=== PATIENT | female | born 1960 | race Caucasian/White ===

== ENCOUNTER 2018-06-17 11:22 | Day surgery (SDC) | payer OTHER ==
[~2018-06-17] VITALS: Ht 172.7 cm; Wt 120.7 kg
[~2018-06-17 11:22] MED LIST: ARIP10 PO; Amoxicillin500 MG PO; BENZ.5; BENZ2 PO; CALCIUM CITRAT1 EAC4 PO; CHLO100; CYCL10 PO; ESOM20; Fish Oil 10001000 MG GT; GLUC500 PO; HALO5; HALO5 PO; HYDACE5 PO; IBUP800 PO; META400 PO; META800 PO; Micardis Hct 81 EAC1 PO; NAPR500 PO; OMEPRAZOLE MAGN20 MG PO; OXYB5ER; Oxybutynin Chlo10 MG PO; PREVIDENT DT; PROACE100 PO; Percocet 5-3251 EACH PO; SERT100 PO; SERT50; TELM40; TELM80 PO; TELMISARTAN-HC1 EAC1 PO; TRAZ100 PO; TROSPIUM CHLORI20 MG PO; XARELTO10 MG PO; [UNRECOGNIZED DRUG - CODE] SL
--- NOTE | 2018-06-17 12:09 | NUR ---
PT ADMITTED TO [facility]. AGREES WITH PLANNED SURGERY. MEDS, ALLERGIES AND HX REVIEWED. LUNG SOUNDS CLEAR.
--- NOTE | 2018-06-17 12:38 | NUR ---
1220-ASSUMED CARE OF PATIENT FOR BROOKE MARQUEZ, REPORT RECEIVED. 1234-NOZIN SWABS COMPLETED. WILL BRING COMMODE TO BEDSIDE FOR VOID DUE TO MOBILITY ISSUES.
--- NOTE | 2018-06-17 12:52 | NUR ---
CLARIFIED ORDER WITH DR SAMAYOA AND WE WILL GO TO OR WITH 3 GM IV ANCEF INSTEAD OF 2 GM FOR 120.5 KG WEIGHT.
--- NOTE | 2018-06-17 12:53 | NUR ---
REPORT TO BROOKE MARQUEZ WHO IS RESUMING CARE OF PATIENT, REPORT GIVEN.
--- NOTE | 2018-06-17 18:27 | NUR ---
SHIFT SUMMARY PATIENT MOVING LEGS WELL, DENIES PAIN AT THIS TIME. TAKING PO WELL. VSS. R HIP DRESSING D&I. CIRC CHECKS WNL. NO C/O AT THIS TIME.
[2018-06-18 04:37] LABS: BASOPHILS ABSOLUTE AUTO 0.03 K/mm3 (0.00-0.23); BASOPHILS PERCENT AUTO 0 % (0-2); EOSINOPHILS ABSOLUTE AUTO 0.33 K/mm3 (0.00-0.68); EOSINOPHILS PERCENT AUTO 3 % (0-6); Hematocrit 34.4 % (33.0-51.0); Hemoglobin 11.1 g/dL (11.5-16.0); IMMATURE GRAN ABSOLUTE AUTO 0.03 K/mm3 (0.00-0.10); IMMATURE GRAN PERCENT AUTO 0 % (0-1); LYMPHOCYTES ABSOLUTE AUTO 1.99 K/mm3 (0.84-5.20); LYMPHOCYTES PERCENT AUTO 21 % (21-46); MONOCYTES ABSOLUTE AUTO 0.91 K/mm3 (0.16-1.47); MONOCYTES PERCENT AUTO 10 % (4-13); Mean Corpuscular HGB 29.1 pg (26.0-34.0); Mean Corpuscular HGB Conc 32.3 g/dL (31.5-36.5); Mean Corpuscular Volume 90 fL (80-100); Mean Platelet Volume 9.9 fL (9.1-12.4); NEUTROPHILS ABSOLUTE AUTO 6.28 K/mm3 (1.96-9.15); NEUTROPHILS PERCENT AUTO 66 % (41-73); Platelet Count 252 K/mm3 (150-400); RDW Coefficient Variation 13.5 % (11.7-14.2); RDW Standard Deviation 44.6 fL (35.1-46.3); Red Blood Cell Count 3.82 M/mm3 (3.80-5.20); White Blood Cell Count 9.57 K/mm3 (4.00-11.30)
[2018-06-18 04:51] LABS: Anion Gap 9 mmol/L (6-16); Blood Urea Nitrogen 11 mg/dL (8-24); Bun/Creatinine Ratio 14.2 (12.0-20.0); CO2, Blood 27 mmol/L (21-32); Calcium, Blood 8.7 mg/dL (8.5-10.1); Chloride, Blood 99 mmol/L (98-108); Creatinine, Blood 0.77 mg/dL (0.40-1.00); Glomerular Filtration Rate >60 (60-); Glucose, Blood 119 mg/dL (70-99); Potassium, Blood 3.3 mmol/L (3.5-5.5); Sodium, Blood 135 mmol/L (136-145)
--- NOTE | 2018-06-18 07:22 | NUR ---
SUMMARY: POD [address] SAMAYOA. VSS, AFEBRILE, ROOM AIR, WITH GOOD TCDB EFFORT. PAIN WELL CONTROLLED WITH 5MG ROXICODONE FOR PRN PAIN. UP WITH 1 ASSIST FOR BRP; VOIDING CLEAR, YELLOW AND HAD BM THIS MORNING. ANTICIPATE PT/OT AND DC HOME LATER THIS DAY.
[2018-06-18] MEDS ORDERED: Percocet 5-3251 EACH PO (11:41)
[2018-06-18] MEDS ORDERED: XARELTO10 MG PO (11:42)
--- NOTE | 2018-06-18 12:05 | NUR ---
pt provided with discharge instructions and printed materials,peripheral iv removed wnl. pt escorted to awaiting vehicle via wheelchair with belongings taken to vehicle by pt's .
--- NOTE | 2018-06-18 13:54 | NUR ---
06/18/18 1354 Elisabeth Higgins VERIFICATIONS: EDIT CHART.
== END 2018-06-18 12:05 | disposition home or self-care (01) ==
LOC: ORSCMMR 11:22 → ORD 13:30 → ORSCMMR 13:30 → SURS 16:05 → ORSCMMR 06-18 12:05 → ORD 06-24 07:30
PROVIDERS: Orthopaedic Surgery
PROC: 0SRC0JZ Replacement of Right Knee Joint with Synthetic Substitute, Open Approach (ICD-10-PCS; principal; 2018-06-17 13:30)
DX: M17.11 Unilateral primary osteoarthritis, right knee (principal); I10 Essential (primary) hypertension; F31.9 Bipolar disorder, unspecified; J44.9 Chronic obstructive pulmonary disease, unspecified; G47.33 Obstructive sleep apnea (adult) (pediatric); R01.1 Cardiac murmur, unspecified; Z79.899 Other long term (current) drug therapy; Z96.652 Presence of left artificial knee joint; Z88.8 Allergy status to other drugs, medicaments and biological substances
CPT/HCPCS: 36415; 73560-RT; 80048; 82947; 85025; 86850; 86900; 86901; 88300; 97110; 97116; 97162; C1776; J0171; J0690; J0735; J1885; J2250; J2795; J3010; J7120

== ENCOUNTER → 2022-03-06 | Outpatient (CLI) | payer MEDICARE ==
[2022-03-11 14:09] LABS: HPV 16 Negative (Negative); HPV 18 Negative (Negative); HPV OTHER HR TYPES Negative (Negative)
== END ==
LOC: LAB 08:00 → LAB SHORT 08:00
PROVIDERS: Family Medicine
DX: Z01.419 Encounter for gynecological examination (general) (routine) without abnormal findings (principal)
CPT/HCPCS: 87624; G0123

== ENCOUNTER 2023-03-04 13:40 | Day surgery (SDC) | payer MEDICARE ==
[~2023-03-04] VITALS: Ht 170.2 cm; Wt 123.6 kg
[2023-03-04] MEDS ORDERED: HYDROCHLOROTHIA25 MG (14:02)
[2023-03-04] MEDS ORDERED: AMLO5 (14:02)
[2023-03-04] MEDS ORDERED: LOSA50 (14:02)
--- NOTE | 2023-03-04 16:56 | NUR ---
03/04/23 923 ALINA DONALDSON RECEIVED REPORT FROM RN'S AMINAH. THIS RN IS TAKING OVER CIRCULATING CASE I AM SCHEDULED LATE TODAY.
[2023-03-04 17:42] VITALS: BP 155/79
== END 2023-03-04 17:30 | disposition home or self-care (01) ==
LOC: ORSCSDS 13:40
PROVIDERS: Internal Medicine Gastroenterology
PROC: 0DB98ZX Excision of Duodenum, Via Natural or Artificial Opening Endoscopic, Diagnostic (ICD-10-PCS; principal; 2023-03-04 15:00)
PROC: 0DBE8ZX Excision of Large Intestine, Via Natural or Artificial Opening Endoscopic, Diagnostic (ICD-10-PCS; principal; 2023-03-04 15:00)
PROC: 0DBK8ZX Excision of Ascending Colon, Via Natural or Artificial Opening Endoscopic, Diagnostic (ICD-10-PCS; principal; 2023-03-04 15:00)
PROC: 0DBL8ZX Excision of Transverse Colon, Via Natural or Artificial Opening Endoscopic, Diagnostic (ICD-10-PCS; principal; 2023-03-04 15:00)
PROC: 0DB78ZX Excision of Stomach, Pylorus, Via Natural or Artificial Opening Endoscopic, Diagnostic (ICD-10-PCS; principal; 2023-03-04 15:00)
DX: R19.7 Diarrhea, unspecified (principal); K21.9 Gastro-esophageal reflux disease without esophagitis; Z86.010 Personal history of colon polyps; K31.7 Polyp of stomach and duodenum; D12.3 Benign neoplasm of transverse colon; D12.2 Benign neoplasm of ascending colon; K92.1 Melena; K29.70 Gastritis, unspecified, without bleeding; K57.30 Diverticulosis of large intestine without perforation or abscess without bleeding; I10 Essential (primary) hypertension; G47.33 Obstructive sleep apnea (adult) (pediatric); F31.9 Bipolar disorder, unspecified; F41.9 Anxiety disorder, unspecified; E66.01 Morbid (severe) obesity due to excess calories; Z68.41 Body mass index [BMI] 40.0-44.9, adult; Z79.899 Other long term (current) drug therapy
CPT/HCPCS: 88305; 88342; J0461; J2001; J2405; J2704; J7120; Q9968

== ENCOUNTER 2023-08-14 10:42 | Day surgery (SDC) | payer OTHER ==
[~2023-08-14] VITALS: Ht 170.2 cm; Wt 125.8 kg
[~2023-08-14 10:42] MED LIST changes: +AMLO5; +FAMO20 PO; +HYDROCHLOROTHIA25 MG; +LOSA50; +Lactated Ringer's 1,000 ML IV ONE
[2023-08-14] MEDS ORDERED: Lactated Ringer's 1,000 ML IV ONE (12:01)
[2023-08-14] MEDS ORDERED: propofoL 50 ML IV ONE (12:08)
[2023-08-14 13:22] VITALS: BP 161/75
== END 2023-08-14 13:22 | disposition home or self-care (01) ==
LOC: ORSCSDS 10:42
PROVIDERS: Internal Medicine Gastroenterology
PROC: 0DBL8ZX Excision of Transverse Colon, Via Natural or Artificial Opening Endoscopic, Diagnostic (ICD-10-PCS; principal; 2023-08-14 12:30)
PROC: 0DBN8ZX Excision of Sigmoid Colon, Via Natural or Artificial Opening Endoscopic, Diagnostic (ICD-10-PCS; principal; 2023-08-14 12:30)
DX: Z86.010 Personal history of colon polyps (principal); K63.5 Polyp of colon; K57.30 Diverticulosis of large intestine without perforation or abscess without bleeding; I10 Essential (primary) hypertension; J44.9 Chronic obstructive pulmonary disease, unspecified; K21.9 Gastro-esophageal reflux disease without esophagitis; G47.33 Obstructive sleep apnea (adult) (pediatric); F32.A Depression, unspecified; F25.9 Schizoaffective disorder, unspecified; Z79.899 Other long term (current) drug therapy
CPT/HCPCS: 88305; J2704; J7120

== ENCOUNTER 2023-12-14 16:01 | Emergency (ER) | payer OTHER ==
[~2023-12-14] VITALS: Ht 170.2 cm; Wt 124.7 kg
[~2023-12-14 16:01] MED LIST changes: -Lactated Ringer's 1,000 ML IV ONE
[2023-12-14 17:40] LABS: BASOPHILS ABSOLUTE AUTO 0.02 K/mm3 (0.00-0.23); BASOPHILS PERCENT AUTO 0 % (0-2); EOSINOPHILS ABSOLUTE AUTO 0.25 K/mm3 (0.00-0.68); EOSINOPHILS PERCENT AUTO 3 % (0-6); Hematocrit 41.2 % (33.0-51.0); Hemoglobin 14.2 g/dL (11.5-16.0); IMMATURE GRAN ABSOLUTE AUTO 0.01 K/mm3 (0.00-0.10); IMMATURE GRAN PERCENT AUTO 0 % (0-1); LYMPHOCYTES ABSOLUTE AUTO 2.21 K/mm3 (0.84-5.20); LYMPHOCYTES PERCENT AUTO 29 % (21-46); MONOCYTES PERCENT AUTO 8 % (4-13); Mean Corpuscular HGB 30.5 pg (26.0-34.0); Mean Corpuscular HGB Conc 34.5 g/dL (31.5-36.5); Mean Corpuscular Volume 88 fL (80-100); Mean Platelet Volume 9.7 fL (9.1-12.4); NEUTROPHILS ABSOLUTE AUTO 4.42 K/mm3 (1.96-9.15); NEUTROPHILS PERCENT AUTO 59 % (41-73); Platelet Count 272 K/mm3 (150-400); RDW Coefficient Variation 13.2 % (11.7-14.2); Red Blood Cell Count 4.66 M/mm3 (3.80-5.20); White Blood Cell Count 7.51 K/mm3 (4.00-11.30)
[2023-12-14] MEDS ORDERED: Ketorolac Tromethamine 15mg Vial IV ONE (18:05)
[2023-12-14] MEDS ORDERED: Acetaminophen 500 MG Tab PO ONE (18:05)
[2023-12-14 18:14] LABS: Albumin, Blood 3.8 g/dL (3.4-5.0); Albumin/Globulin Ratio 0.8 (0.8-1.8); Bilirubin, Total 0.3 mg/dL (0.1-1.0); Bun/Creatinine Ratio 21.8 (12.0-20.0); Calcium, Blood 9.3 mg/dL (8.5-10.1); Creatinine, Blood 0.6 mg/dL (0.40-1.00); Globulin, Blood 4.5 g/dL (2.2-4.0); Potassium, Blood 3.5 mmol/L (3.5-5.5); Total Protein, Blood 8.3 g/dL (6.4-8.2)
[2023-12-14] MEDS ORDERED: IBUP600 PO (19:36)
[2023-12-14] MEDS ORDERED: LIDO700A20 TOP (19:36)
[2023-12-14] MEDS ORDERED: ACET500 PO (19:36)
[2023-12-14 20:00] VITALS: BP 173/90
== END 2023-12-14 20:06 | disposition home or self-care (01) ==
LOC: ER 16:01
PROVIDERS: Physician Assistant
DX: M19.012 Primary osteoarthritis, left shoulder (principal); F32.A Depression, unspecified; Z79.899 Other long term (current) drug therapy; Z88.8 Allergy status to other drugs, medicaments and biological substances
CPT/HCPCS: 71046; 73030; 80053; 83690; 84484; 85025; 93005; 93010; 96374; 99284-25; A9270; J1885

== ENCOUNTER 2024-02-21 07:27 | Emergency (ER) | payer OTHER ==
[~2024-02-21] VITALS: Ht 170.2 cm; Wt 127.0 kg
[~2024-02-21 07:27] MED LIST changes: +ACET500 PO; +IBUP600 PO; +LIDO700A20 TOP
[2024-02-21 08:24] VITALS: BP 170/83
[2024-02-21] MEDS ORDERED: CELEBREX200 MG PO (09:15)
[2024-02-21] MEDS ORDERED: OMEP20ER PO (09:16)
[2024-02-21] MEDS ORDERED: METFORMIN HCL500 M2 PO (09:16)
[2024-02-21] MEDS ORDERED: HALOPERIDOL PO (09:16)
[2024-02-21] MEDS ORDERED: AMLODIPINE BESY10 MG PO (09:18)
[2024-02-21] MEDS ORDERED: CLOBETASOL PRO118 ML TP (09:35)
[2024-02-22] MEDS ORDERED: CLOBETASOL PRO118 ML TP (08:20)
== END 2024-02-21 09:47 | disposition home or self-care (01) ==
LOC: ER 07:27
DX: L40.9 Psoriasis, unspecified (principal); Z88.8 Allergy status to other drugs, medicaments and biological substances; Z79.899 Other long term (current) drug therapy
CPT/HCPCS: 99282

== ENCOUNTER 2025-04-23 10:03 | Emergency (ER) | payer OTHER ==
[~2025-04-23] VITALS: Ht 170.2 cm; Wt 128.8 kg
[~2025-04-23 10:03] MED LIST changes: +AMLODIPINE BESY10 MG PO; +CELEBREX200 MG PO; +CLOBETASOL PRO118 ML TP; +HALOPERIDOL PO; +METFORMIN HCL500 M2 PO; +OMEP20ER PO
[2025-04-23 10:26] VITALS: BP 144/75
[2025-04-23 13:36] LABS: BASOPHILS ABSOLUTE AUTO 0.04 K/mm3 (0.00-0.23); BASOPHILS PERCENT AUTO 0 % (0-2); EOSINOPHILS ABSOLUTE AUTO 0.34 K/mm3 (0.00-0.68); EOSINOPHILS PERCENT AUTO 3 % (0-6); Hematocrit 40.1 % (33.0-51.0); Hemoglobin 13.5 g/dL (11.5-16.0); IMMATURE GRAN ABSOLUTE AUTO 0.02 K/mm3 (0.00-0.10); IMMATURE GRAN PERCENT AUTO 0 % (0-1); LYMPHOCYTES ABSOLUTE AUTO 1.79 K/mm3 (0.84-5.20); LYMPHOCYTES PERCENT AUTO 18 % (21-46); MONOCYTES ABSOLUTE AUTO 1.28 K/mm3 (0.16-1.47); MONOCYTES PERCENT AUTO 13 % (4-13); Mean Corpuscular HGB Conc 33.7 g/dL (31.5-36.5); Mean Corpuscular Volume 87 fL (80-100); NEUTROPHILS ABSOLUTE AUTO 6.60 K/mm3 (1.96-9.15); NEUTROPHILS PERCENT AUTO 66 % (41-73); NRBC ABSOLUTE 0.00 K/mm3 (0.00-0.02); NRBC Auto 0.0 /100 WBC (0.0-0.2); Platelet Count 256 K/mm3 (150-400); RDW Coefficient Variation 13.2 % (11.7-14.2); RDW Standard Deviation 42.6 fL (35.1-46.3)
[2025-04-23 13:54] LABS: Alanine Aminotransfer (ALT/SGP 36.0 U/L (12-78); Albumin, Blood 3.9 g/dL (3.4-5.0); Albumin/Globulin Ratio 1.0 (0.8-1.8); Anion Gap 9.0 mmol/L (3-11); Aspartate Aminotrans (AST/SGOT 22.0 U/L (12-37); Bilirubin, Total 0.4 mg/dL (0.1-1.0); Blood Urea Nitrogen 13.0 mg/dL (8-24); CO2, Blood 28.0 mmol/L (21-32); Calcium, Blood 9.5 mg/dL (8.5-10.1); Chloride, Blood 98.0 mmol/L (98-108); Creatinine, Blood 0.59 mg/dL (0.40-1.00); Globulin, Blood 4.1 g/dL (2.2-4.0); Glucose, Blood 97.0 mg/dL (70-99); Potassium, Blood 3.7 mmol/L (3.5-5.5); Sodium, Blood 131.0 mmol/L (136-145); Total Protein, Blood 8.0 g/dL (6.4-8.2)
[2025-04-23] MEDS ORDERED: Amoxicillin875 MG PO (14:08)
[2025-04-23] MEDS ORDERED: BACTRIM DS TAB1 EAC2 PO (14:08)
[2025-04-23] MEDS ORDERED: Trimethoprim/Sulfamethoxazole DS Tab PO ONE (14:10)
== END 2025-04-23 14:20 | disposition home or self-care (01) ==
LOC: ER 10:03
PROVIDERS: Student in an Organized Health Care Education/Training Program
DX: L03.213 Periorbital cellulitis (principal); Z88.8 Allergy status to other drugs, medicaments and biological substances; Z79.1 Long term (current) use of non-steroidal anti-inflammatories (NSAID); Z79.84 Long term (current) use of oral hypoglycemic drugs; Z79.899 Other long term (current) drug therapy
CPT/HCPCS: 70481; 80053; 85025; 99284-25; A9270; Q9967